=== PATIENT | female | born 1940 | race Caucasian/White ===

== ENCOUNTER 2017-03-26 00:33 | Emergency (ER) | payer MEDICARE ==
[2017-03-26] MEDS ORDERED: TRAMADOL HCL 50 MG TABLET ONE (01:49)
[2017-03-26 01:57] LABS: APPEARANCE,URINE Clear (CLEAR); BILIRUBIN,URINE Negative (NEGATIVE); COLOR,URINE Yellow (YELLOW); GLUCOSE, URINE (UA) Negative (NEGATIVE); KETONES,URINE Trace mg/dL (NEGATIVE); LEUKOCYTE ESTERASE ,URINE Negative (NEGATIVE); NITRATE,URINE Negative (NEGATIVE); OCCULT BLOOD,URINE Negative (NEGATIVE); PROTEIN,URINE POS 1+ (NEGATIVE)
[2017-03-26 02:09] LABS: BACTERIA,URINE Few /HPF (None Seen); MUCUS,URINE Many LPF (None Seen); RBC,URINE 0-1 /HPF (0-1); SQUAMOUS EPITHELIAL CELL,UR Moderate /LPF (0-2); WBC,URINE 0-1 /HPF (0-1)
[2017-03-26] MEDS ORDERED: LIDOCAINE 5% TOPICAL PATCH TP ONE ×2 (02:41→02:45)
[2017-03-26] MEDS ORDERED: MAGNESIUM CITRATE 296 ML SOLUTION ONE (04:27)
[2017-03-26] MEDS ORDERED: KETOROLAC TROMETHAMINE 30MG/ML ONE (04:27)
== END 2017-03-26 04:46 | disposition home or self-care (01) ==
LOC: EDH 00:33
DX: M54.5 Low back pain (principal); K59.00 Constipation, unspecified; M54.6 Pain in thoracic spine; E11.9 Type 2 diabetes mellitus without complications; I48.91 Unspecified atrial fibrillation; K50.90 Crohn's disease, unspecified, without complications; Z88.0 Allergy status to penicillin; Z88.8 Allergy status to other drugs, medicaments and biological substances; Z90.49 Acquired absence of other specified parts of digestive tract
CPT/HCPCS: 74176; 81001; 96372; 99285; J1885

== ENCOUNTER → 2018-05-09 | Outpatient (CLI) | payer MEDICARE | END | disposition home or self-care (01) | LOC: SHCH 16:23 | PROVIDERS: ATTEND Internal Medicine Cardiovascular Disease | DX: I11.9 Hypertensive heart disease without heart failure (principal); I31.3 Pericardial effusion (noninflammatory) | CPT/HCPCS: 93306 ==

== ENCOUNTER → 2018-05-20 | Outpatient (CLI) | payer MEDICARE ==
[~2018-05-20] VITALS: Ht 160 cm; Wt 72.6 kg
[~2018-05-20] MED LIST: ASPI-1026 PO; CRAN250T2 PO; DILT180C88 PO; DILT180T12 PO; EZET1TAB17 PO; MESA800T9 PO; OMEP20CA10 PO; PARO30TA60 PO; REGADENOSON 0.4 MG/5 ML PF SYG IVP SCH; SIMV20TA6 PO; SITA1TAB2 PO; SITA1TBM4 PO
== END | disposition home or self-care (01) ==
LOC: SHCH 08:26
PROVIDERS: ATTEND Internal Medicine Cardiovascular Disease
DX: R00.2 Palpitations (principal); R10.9 Unspecified abdominal pain; I10 Essential (primary) hypertension; I48.91 Unspecified atrial fibrillation
CPT/HCPCS: 78452; 93017; 96374; A9500 ×2; J2785

== ENCOUNTER 2018-06-06 17:08 | Emergency (ER) | payer MEDICARE ==
[~2018-06-06 17:08] MED LIST changes: -DILT180T12 PO; -REGADENOSON 0.4 MG/5 ML PF SYG IVP SCH; -SITA1TAB2 PO
[2018-06-06 17:46] LABS: APPEARANCE,URINE CLEAR (CLEAR); BILIRUBIN,URINE NEGATIVE (NEGATIVE); COLOR,URINE Orange (YELLOW); GLUCOSE, URINE (UA) 100 mg/dL (NEGATIVE); KETONES,URINE 15 mg/dL (NEGATIVE); LEUKOCYTE ESTERASE ,URINE TRACE (NEGATIVE); NITRATE,URINE POSITIVE (NEGATIVE); OCCULT BLOOD,URINE NEGATIVE (NEGATIVE); PROTEIN,URINE 100 mg/dL (NEGATIVE)
[2018-06-06 17:48] LABS: RBC,URINE None Seen /HPF (0-1)
[2018-06-06 17:49] LABS: BACTERIA,URINE Few /HPF (None Seen); CALCIUM OXALATE CRYSTALS,UR Many /LPF (None Seen)
[2018-06-06 17:50] LABS: SQUAMOUS EPITHELIAL CELL,UR 0-2 /HPF (0-2)
[2018-06-06] MEDS ORDERED: LEVOFLOXACIN 500 MG TABLET ONE (18:09)
== END 2018-06-06 18:17 | disposition home or self-care (01) ==
LOC: EDH 17:08
DX: N39.0 Urinary tract infection, site not specified (principal); E11.9 Type 2 diabetes mellitus without complications; I48.91 Unspecified atrial fibrillation; Z88.0 Allergy status to penicillin; Z88.1 Allergy status to other antibiotic agents; Z88.2 Allergy status to sulfonamides; Z88.8 Allergy status to other drugs, medicaments and biological substances; Z90.49 Acquired absence of other specified parts of digestive tract; Z90.89 Acquired absence of other organs; Z90.710 Acquired absence of both cervix and uterus; Z98.890 Other specified postprocedural states
CPT/HCPCS: 81001

== ENCOUNTER 2020-04-08 23:23 | Inpatient (IN) | payer MEDICARE ==
[~2020-04-08] VITALS: Ht 160 cm; Wt 72.5 kg
[~2020-04-08 23:23] MED LIST changes: -OMEP20CA10 PO; +OMEP20CA12 PO; +SIMV-43 PO; -SIMV20TA6 PO
[2020-04-08 23:49] LABS: APPEARANCE,URINE Clear (CLEAR); BILIRUBIN,URINE Negative (NEGATIVE); COLOR,URINE Yellow (YELLOW); GLUCOSE, URINE (UA) Negative (NEGATIVE); KETONES,URINE Trace mg/dL (NEGATIVE); LEUKOCYTE ESTERASE ,URINE Moderate (NEGATIVE); NITRATE,URINE Negative (NEGATIVE); OCCULT BLOOD,URINE Negative (NEGATIVE); PH,URINE 5.5 (5.0-8.0); PROTEIN,URINE POS 1+ mg/dL (NEGATIVE)
[2020-04-09] MEDS ORDERED: LEVOFLOXACIN 500 MG/D5W 100 ML 100 ML ONE
[2020-04-09] MEDS ORDERED: 0.9%NACL 1000ML 1,000 ML IV ONE (00:01)
[2020-04-09] MEDS ORDERED: METRONIDAZOLE 500MG/100ML BAG 100 ML ONE (00:01)
[2020-04-09 00:25] LABS: POTASSIUM 4.4 mmol/L (3.5-5.1)
[2020-04-09 00:30] LABS: ALBUMIN 4.2 g/dL (3.5-5.0); BASOPHILS % (AUTO) 0.6 % (0.0-5.0); BILIRUBIN,TOTAL 0.1 mg/dL (0.2-1.0); EOSINOPHILS % (AUTO) 1.3 % (0.0-8.0); HEMATOCRIT 39.6 % (36-48); LYMPHOCYTES % (AUTO) 18.5 % (21.0-51.0); MEAN CORPUSCULAR HEMOGLOBIN 28.7 pg (27.0-33.0); MEAN CORPUSCULAR HGB CONC 33.1 g/dL (32.0-36.0); MEAN CORPUSCULAR VOLUME 86.7 fL (79-99); MONOCYTES % (AUTO) 5.9 % (3.0-13.0); NEUTROPHILS % (AUTO) 73.4 % (40.0-77.0); PLATELET COUNT (AUTO) 432 K/uL (130-400); RED BLOOD CELL COUNT(AUTO) 4.57 MIL/uL (4.00-5.50); RED CELL DISTRIBUTION WIDTH 13.6 % (11.0-15.5); TOTAL PROTEIN, SERUM 7.7 g/dL (6.0-8.3)
[2020-04-09 00:31] LABS: BACTERIA,URINE Few /HPF (None Seen); RBC,URINE 0-1 /HPF (0-1); SQUAMOUS EPITHELIAL CELL,UR 0-2 /HPF (0-2)
[2020-04-09] MEDS ORDERED: FENTANYL CITRATE PF 50 MCG/1 ML 2ML VIAL ONE ×2 (00:40→03:21)
[2020-04-09] MEDS ORDERED: MORPHINE 2 MG SYG IVP PRN (02:15)
[2020-04-09] MEDS ORDERED: ACETAMINOPHEN 325 MG TAB PO PRN (02:15)
[2020-04-09] MEDS ORDERED: MAG/ALUM/SIMETH 30 ML UDCUP PO PRN (02:15)
[2020-04-09] MEDS ORDERED: DIPHENHYDRAMINE HCL 25 MG CAPSULE PO PRN (02:15)
[2020-04-09] MEDS ORDERED: POTASSIUM CHLORIDE 20MEQ/100ML 100 ML IV PRN ×2 (02:15)
[2020-04-09] MEDS ORDERED: POTASSIUM CHLORIDE 10% ELIXIR 20 MEQ/15 ML UDCUP PO PRN (02:15)
[2020-04-09] MEDS ORDERED: GUAIFENESIN-DM 200/20 MG 10 ML PO PRN (02:15)
[2020-04-09] MEDS ORDERED: LACTULOSE 20 GM/30 ML UDCUP PO PRN (02:15)
[2020-04-09] MEDS ORDERED: DiphenhydrAMINE HCL 50 MG/ML VIAL IV PRN (02:15)
[2020-04-09] MEDS ORDERED: ONDANSETRON 4MG INJ IV PRN (02:15)
[2020-04-09] MEDS ORDERED: LABETALOL 20MG SYG IV PRN (02:15)
[2020-04-09] MEDS ORDERED: KCL 20 MEQ ERTAB PO PRN (02:15)
[2020-04-09] MEDS ORDERED: NITROGLYCERIN 0.4 MG SL TAB SL PRN (02:15)
[2020-04-09] MEDS ORDERED: MORPHINE 2 MG SYG ONE ×3 (02:20→07:55)
[2020-04-09] MEDS ORDERED: ONDANSETRON 4MG INJ ONE ×2 (02:20→04:51)
[2020-04-09] MEDS ORDERED: PHARMACY COMMUNICATION MISC SCH (04:15)
[2020-04-09] MEDS ORDERED: LACTATED RINGERS 1000ML 1,000 ML IV ONE (04:38)
[2020-04-09] MEDS: METRONIDAZOLE 500MG/100ML BAG 100 ML IVPB SCH ×3 (06:00→22:16)
[2020-04-09] MEDS: INSULIN HUMULIN R 100 UNIT/ML 3ML SQ SCH ×3 (07:30→16:30)
[2020-04-09] MEDS: LEVOFLOXACIN 750 MG/D5W 150 ML 150 ML IV SCH (09:00)
[2020-04-09 09:15] VITALS: BP 162/94
[2020-04-09] MEDS: LACTATED RINGERS 1000ML 1,000 ML IV SCH ×2 (10:17→22:15)
[2020-04-09] MEDS: ACETAMINOPHEN 325 MG TAB PO PRN ×2 (11:34→18:14)
[2020-04-09] MEDS: APIXABAN 5 MG TABLET PO SCH ×2 (11:35→20:02)
[2020-04-09 16:00] VITALS: BP 147/84
[2020-04-09 19:44] VITALS: BP 128/74
[2020-04-09 23:46] VITALS: BP 145/84
[2020-04-10 04:07] VITALS: BP 169/93
[2020-04-10] MEDS: INSULIN HUMULIN R 100 UNIT/ML 3ML SQ SCH ×4 (06:00→18:00)
[2020-04-10 06:26] LABS: BASOPHILS % (AUTO) 0.4 % (0.0-5.0); HEMATOCRIT 34.9 % (36-48); MEAN CORPUSCULAR HEMOGLOBIN 28.8 pg (27.0-33.0); MEAN CORPUSCULAR HGB CONC 32.7 g/dL (32.0-36.0); MEAN CORPUSCULAR VOLUME 88.1 fL (79-99); NEUTROPHILS % (AUTO) 76.4 % (40.0-77.0); PLATELET COUNT (AUTO) 383 K/uL (130-400); RED BLOOD CELL COUNT(AUTO) 3.96 MIL/uL (4.00-5.50); RED CELL DISTRIBUTION WIDTH 13.4 % (11.0-15.5); WHITE BLOOD COUNT (AUTO) 8.1 K/uL (4.8-10.8)
[2020-04-10 07:00] VITALS: BP 157/90
[2020-04-10 07:00] LABS: ALBUMIN 3.2 g/dL (3.5-5.0); BILIRUBIN,TOTAL 0.3 mg/dL (0.2-1.0); CREATININE 0.9 mg/dL (0.5-1.5); MAGNESIUM 1.4 mg/dL (1.80-2.40); POTASSIUM 5.1 mmol/L (3.5-5.1); TOTAL PROTEIN, SERUM 6.5 g/dL (6.0-8.3)
[2020-04-10] MEDS: METRONIDAZOLE 500MG/100ML BAG 100 ML IVPB SCH ×3 (07:30→20:47)
[2020-04-10] MEDS: LEVOFLOXACIN 750 MG/D5W 150 ML 150 ML IV SCH (10:22)
[2020-04-10] MEDS: APIXABAN 5 MG TABLET PO SCH ×2 (10:22→20:47)
[2020-04-10 11:00] VITALS: BP 150/90
[2020-04-10] MEDS ORDERED: LACTATED RINGERS 1000ML 1,000 ML IV ONE (14:58)
[2020-04-10] MEDS: LACTATED RINGERS 1000ML 1,000 ML IV SCH (15:00)
[2020-04-10 16:00] VITALS: BP 163/100
[2020-04-10 19:34] VITALS: BP 156/87
[2020-04-10 23:53] VITALS: BP 146/88
[2020-04-11 04:48] VITALS: BP 158/95
[2020-04-11 05:42] LABS: BASOPHILS % (AUTO) 0.6 % (0.0-5.0); EOSINOPHILS % (AUTO) 1.9 % (0.0-8.0); HEMATOCRIT 33.7 % (36-48); LYMPHOCYTES % (AUTO) 19.4 % (21.0-51.0); MEAN CORPUSCULAR HEMOGLOBIN 28.8 pg (27.0-33.0); MEAN CORPUSCULAR HGB CONC 32.6 g/dL (32.0-36.0); MEAN CORPUSCULAR VOLUME 88.2 fL (79-99); MONOCYTES % (AUTO) 8.9 % (3.0-13.0); NEUTROPHILS % (AUTO) 68.9 % (40.0-77.0); PLATELET COUNT (AUTO) 362 K/uL (130-400); RED BLOOD CELL COUNT(AUTO) 3.82 MIL/uL (4.00-5.50); RED CELL DISTRIBUTION WIDTH 13.5 % (11.0-15.5); WHITE BLOOD COUNT (AUTO) 6.3 K/uL (4.8-10.8)
[2020-04-11] MEDS: INSULIN HUMULIN R 100 UNIT/ML 3ML SQ SCH ×4 (06:00→18:00)
[2020-04-11 06:12] LABS: ALBUMIN 3.2 g/dL (3.5-5.0); BILIRUBIN,TOTAL 0.3 mg/dL (0.2-1.0); CREATININE 0.9 mg/dL (0.5-1.5); POTASSIUM 4.4 mmol/L (3.5-5.1); TOTAL PROTEIN, SERUM 6.6 g/dL (6.0-8.3)
[2020-04-11] MEDS: METRONIDAZOLE 500MG/100ML BAG 100 ML IVPB SCH ×3 (06:14→21:16)
[2020-04-11 07:00] VITALS: BP 158/91
[2020-04-11] MEDS: LACTATED RINGERS 1000ML 1,000 ML IV SCH ×4 (08:12→21:17)
[2020-04-11] MEDS: LEVOFLOXACIN 750 MG/D5W 150 ML 150 ML IV SCH (09:24)
[2020-04-11] MEDS: APIXABAN 5 MG TABLET PO SCH ×2 (09:24→18:10)
[2020-04-11] MEDS: MAGNESIUM 2GM PREMIX 50ML 50 ML IV PRN (10:55)
[2020-04-11 11:00] VITALS: BP 151/87
[2020-04-11 16:00] VITALS: BP 153/90
[2020-04-11] MEDS ORDERED: PROP225T3 PO (19:32)
[2020-04-11 20:00] VITALS: BP 177/93
[2020-04-11] MEDS: NITROFURANTOIN MONOHYD/M-CRYST 100 MG CAPSULE PO SCH (20:05)
[2020-04-11 23:47] VITALS: BP 153/87
[2020-04-12 03:30] VITALS: BP 161/86
[2020-04-12 05:37] LABS: BASOPHILS % (AUTO) 0.9 % (0.0-5.0); EOSINOPHILS % (AUTO) 1.5 % (0.0-8.0); HEMATOCRIT 34.6 % (36-48); LYMPHOCYTES % (AUTO) 20.2 % (21.0-51.0); MEAN CORPUSCULAR HEMOGLOBIN 27.9 pg (27.0-33.0); MEAN CORPUSCULAR HGB CONC 32.1 g/dL (32.0-36.0); MEAN CORPUSCULAR VOLUME 86.9 fL (79-99); MONOCYTES % (AUTO) 11.6 % (3.0-13.0); NEUTROPHILS % (AUTO) 65.5 % (40.0-77.0); PLATELET COUNT (AUTO) 373 K/uL (130-400); RED BLOOD CELL COUNT(AUTO) 3.98 MIL/uL (4.00-5.50); RED CELL DISTRIBUTION WIDTH 13.2 % (11.0-15.5); WHITE BLOOD COUNT (AUTO) 6.5 K/uL (4.8-10.8)
[2020-04-12] MEDS: INSULIN HUMULIN R 100 UNIT/ML 3ML SQ SCH ×4 (06:00→18:00)
[2020-04-12 06:04] LABS: ALBUMIN 3.3 g/dL (3.5-5.0); BILIRUBIN,TOTAL 0.4 mg/dL (0.2-1.0); CREATININE 0.9 mg/dL (0.5-1.5); POTASSIUM 3.7 mmol/L (3.5-5.1); TOTAL PROTEIN, SERUM 6.5 g/dL (6.0-8.3)
[2020-04-12] MEDS: METRONIDAZOLE 500MG/100ML BAG 100 ML IVPB SCH ×3 (06:34→21:36)
[2020-04-12] MEDS ORDERED: ASCO500T92 PO (07:46)
[2020-04-12] MEDS ORDERED: L.AC1CAP6 PO (07:46)
[2020-04-12 07:55] VITALS: BP 151/92
[2020-04-12] MEDS: APIXABAN 5 MG TABLET PO SCH ×2 (10:17→21:37)
[2020-04-12] MEDS: LEVOFLOXACIN 750 MG/D5W 150 ML 150 ML IV SCH (10:17)
[2020-04-12] MEDS: NITROFURANTOIN MONOHYD/M-CRYST 100 MG CAPSULE PO SCH ×2 (10:17→21:36)
[2020-04-12 12:15] VITALS: BP 162/88
[2020-04-12] MEDS ORDERED: DIPHENHYDRAMINE 2% CREAM 30 GM TP PRN (15:15)
[2020-04-12] MEDS ORDERED: BISACODYL 10 MG SUPP.RECT RC PRN (15:15)
[2020-04-12 16:49] VITALS: BP 150/95
[2020-04-12] MEDS: MAGNESIUM 2GM PREMIX 50ML 50 ML IV PRN (16:54)
[2020-04-12] MEDS: LACTATED RINGERS 1000ML 1,000 ML IV SCH (17:02)
[2020-04-12 19:00] VITALS: BP 133/79
[2020-04-12] MEDS: PROPAFENONE HCL 150 MG TABLET PO SCH (22:45)
[2020-04-12 23:46] VITALS: BP 151/83
[2020-04-13] MEDS: LACTATED RINGERS 1000ML 1,000 ML IV SCH ×2 (02:15→13:00)
[2020-04-13 03:00] VITALS: BP 160/83
[2020-04-13] MEDS: METRONIDAZOLE 500MG/100ML BAG 100 ML IVPB SCH ×2 (05:59→15:24)
[2020-04-13] MEDS: INSULIN HUMULIN R 100 UNIT/ML 3ML SQ SCH ×4 (06:00→18:00)
[2020-04-13] MEDS: PROPAFENONE HCL 150 MG TABLET PO SCH ×2 (06:45→15:26)
[2020-04-13 07:30] VITALS: BP 160/83
[2020-04-13] MEDS: JANUMET PO SCH ×2 (09:00→20:21)
[2020-04-13] MEDS: MESALAMINE PO SCH ×2 (09:00→20:21)
[2020-04-13] MEDS: LEVOFLOXACIN 750 MG/D5W 150 ML 150 ML IV SCH (10:58)
[2020-04-13] MEDS: APIXABAN 5 MG TABLET PO SCH ×2 (10:59→20:16)
[2020-04-13] MEDS: LACTOBACILLUS RHAMNOSUS GG 1 EACH CAP.SPRINK PO SCH ×2 (10:59→20:17)
[2020-04-13] MEDS: PAROXETINE HCL 20 MG TABLET PO SCH (10:59)
[2020-04-13] MEDS: ASCORBIC ACID 500 MG TAB PO SCH ×2 (10:59→20:16)
[2020-04-13] MEDS: NITROFURANTOIN MONOHYD/M-CRYST 100 MG CAPSULE PO SCH ×2 (10:59→20:16)
[2020-04-13] MEDS: DILTIAZEM 180MG SR CAP PO SCH ×2 (10:59→20:16)
[2020-04-13 11:00] VITALS: BP 120/81
[2020-04-13] MEDS: PANTOPRAZOLE 40 MG TAB DR PO SCH (11:00)
[2020-04-13 16:00] VITALS: BP 138/73
[2020-04-13 20:26] VITALS: BP 149/70
[2020-04-13 23:54] VITALS: BP 131/64
[2020-04-14] MEDS: METRONIDAZOLE 500MG/100ML BAG 100 ML IVPB SCH ×4 (00:01→20:09)
[2020-04-14] MEDS: PROPAFENONE HCL 150 MG TABLET PO SCH ×4 (00:02→22:46)
[2020-04-14] MEDS: LACTATED RINGERS 1000ML 1,000 ML IV SCH ×3 (00:03→20:09)
[2020-04-14 03:54] VITALS: BP 124/58
[2020-04-14] MEDS: INSULIN HUMULIN R 100 UNIT/ML 3ML SQ SCH ×4 (06:00→20:15)
[2020-04-14 08:06] VITALS: BP 125/63
[2020-04-14] MEDS: JANUMET PO SCH ×2 (09:00→20:10)
[2020-04-14] MEDS ORDERED: VYTORIN PO SCH (09:00)
[2020-04-14] MEDS ORDERED: SIMVASTATIN 20 MG TABLET PO SCH (09:00)
[2020-04-14] MEDS: MESALAMINE PO SCH ×2 (09:00→20:11)
[2020-04-14] MEDS: LEVOFLOXACIN 750 MG/D5W 150 ML 150 ML IV SCH (09:50)
[2020-04-14] MEDS: APIXABAN 5 MG TABLET PO SCH ×2 (09:51→20:10)
[2020-04-14] MEDS: PAROXETINE HCL 20 MG TABLET PO SCH (09:52)
[2020-04-14] MEDS: PANTOPRAZOLE 40 MG TAB DR PO SCH (09:52)
[2020-04-14] MEDS: NITROFURANTOIN MONOHYD/M-CRYST 100 MG CAPSULE PO SCH ×2 (09:52→20:10)
[2020-04-14] MEDS: ASCORBIC ACID 500 MG TAB PO SCH ×2 (09:52→20:10)
[2020-04-14] MEDS: LACTOBACILLUS RHAMNOSUS GG 1 EACH CAP.SPRINK PO SCH ×2 (09:52→20:09)
[2020-04-14] MEDS: DILTIAZEM 180MG SR CAP PO SCH ×2 (09:53→20:10)
[2020-04-14 11:00] VITALS: BP 137/65
[2020-04-14 16:02] VITALS: BP 104/68
[2020-04-14 20:04] VITALS: BP 127/67
[2020-04-14 23:23] VITALS: BP 155/79
[2020-04-15 03:39] VITALS: BP 108/52
[2020-04-15] MEDS: LACTATED RINGERS 1000ML 1,000 ML IV SCH (04:26)
[2020-04-15] MEDS: INSULIN HUMULIN R 100 UNIT/ML 3ML SQ SCH ×2 (05:38→11:43)
[2020-04-15] MEDS: METRONIDAZOLE 500MG/100ML BAG 100 ML IVPB SCH (06:05)
[2020-04-15] MEDS: PROPAFENONE HCL 150 MG TABLET PO SCH (06:05)
[2020-04-15 08:03] VITALS: BP 113/50
[2020-04-15] MEDS: JANUMET PO SCH (09:00)
[2020-04-15] MEDS: MESALAMINE PO SCH (09:00)
[2020-04-15] MEDS: LEVOFLOXACIN 750 MG/D5W 150 ML 150 ML IV SCH (09:19)
[2020-04-15] MEDS: PANTOPRAZOLE 40 MG TAB DR PO SCH (09:19)
[2020-04-15] MEDS: DILTIAZEM 180MG SR CAP PO SCH (09:19)
[2020-04-15] MEDS: LACTOBACILLUS RHAMNOSUS GG 1 EACH CAP.SPRINK PO SCH (09:19)
[2020-04-15] MEDS: APIXABAN 5 MG TABLET PO SCH (09:19)
[2020-04-15] MEDS: PAROXETINE HCL 20 MG TABLET PO SCH (09:19)
[2020-04-15] MEDS: ASCORBIC ACID 500 MG TAB PO SCH (09:20)
[2020-04-15] MEDS: NITROFURANTOIN MONOHYD/M-CRYST 100 MG CAPSULE PO SCH (09:20)
[2020-04-15 11:48] VITALS: BP 125/63
[2020-04-15] MEDS ORDERED: APIX5TAB PO (13:06)
[2020-05-20] MEDS ORDERED: PROP225T3 PO (12:30)
[2020-05-20] MEDS ORDERED: FERR-82 PO (12:36)
== END 2020-04-15 17:35 | disposition home or self-care (01) | DRG 389 ==
LOC: EDH 23:23 → EDHIP 04-09 02:15 → 3AH 04-09 08:57
PROVIDERS: ADMIT Family Medicine; ATTEND Family Medicine
PROC: 0D9670Z Drainage of Stomach with Drainage Device, Via Natural or Artificial Opening (ICD-10-PCS; principal; 2020-04-09)
DX: K56.609 Unspecified intestinal obstruction, unspecified as to partial versus complete obstruction (principal); N39.0 Urinary tract infection, site not specified; D68.69 Other thrombophilia; K80.20 Calculus of gallbladder without cholecystitis without obstruction; K57.90 Diverticulosis of intestine, part unspecified, without perforation or abscess without bleeding; E83.52 Hypercalcemia; I48.91 Unspecified atrial fibrillation; I10 Essential (primary) hypertension; E11.9 Type 2 diabetes mellitus without complications; Z79.01 Long term (current) use of anticoagulants; Z88.1 Allergy status to other antibiotic agents; Z88.0 Allergy status to penicillin
CPT/HCPCS: 36415; 74018; 74176; 76705; 80053; 81001; 82948; 83036; 83735; 85025; 87077; 87186; 93005; G0378; J1200; J1956; J2405; J3010; J3475; J3490; J7030; J7120

== ENCOUNTER 2020-05-24 06:49 | Inpatient (IN) | payer MEDICARE ==
[2020-05-17 11:08] LABS: POTASSIUM 4.1 mmol/L (3.5-5.1)
[2020-05-17 11:10] LABS: BASOPHILS % (AUTO) 1.3 % (0.0-5.0); EOSINOPHILS % (AUTO) 2.2 % (0.0-8.0); HEMATOCRIT 37.3 % (36-48); LYMPHOCYTES % (AUTO) 18.8 % (21.0-51.0); MEAN CORPUSCULAR HEMOGLOBIN 29.2 pg (27.0-33.0); MEAN CORPUSCULAR HGB CONC 32.4 g/dL (32.0-36.0); MEAN CORPUSCULAR VOLUME 90.1 fL (79-99); MONOCYTES % (AUTO) 4.6 % (3.0-13.0); NEUTROPHILS % (AUTO) 72.9 % (40.0-77.0); PLATELET COUNT (AUTO) 437 K/uL (130-400); RED BLOOD CELL COUNT(AUTO) 4.14 MIL/uL (4.00-5.50); RED CELL DISTRIBUTION WIDTH 13.8 % (11.0-15.5); WHITE BLOOD COUNT (AUTO) 6.3 K/uL (4.8-10.8)
[2020-05-17 11:39] LABS: INR 1.1 (0.85-1.15); PROTHROMBIN TIME 11.9 SEC (9.6-11.6)
[2020-05-17 11:40] LABS: PARTIAL THROMBOPLASTIN TIME 29.5 SEC (26.3-35.5)
[~2020-05-24] VITALS: Ht 160 cm; Wt 70.8 kg
[2020-05-24] VITALS (25 sets, daily range): BP systolic 91–150; BP diastolic 36–85
[~2020-05-24 06:49] MED LIST changes: +APIX5TAB PO; +ASCO500T92 PO; -ASPI-1026 PO; +CLINDAMYCIN IVPB 900MG/50ML 50 ML IV SCH; +FERR-82 PO; +L.AC1CAP6 PO; +PROP225T3 PO; -SIMV-43 PO
[2020-05-24] MEDS ORDERED: CLINDAMYCIN IVPB 900MG/50ML 50 ML IV ONE (07:38)
[2020-05-24] MEDS ORDERED: DEXAMETHASONE SOD PHOSPHATE 10MG/ML 1ML VIAL ONE (07:46)
[2020-05-24] MEDS ORDERED: LIDOCAINE PF 100MG/5ML (2%) SYRINGE 5ML ONE (07:46)
[2020-05-24] MEDS ORDERED: SUCCINYLCHOLINE 200MG/10ML SYR ONE ×2 (07:46→08:05)
[2020-05-24] MEDS ORDERED: ONDANSETRON 4MG INJ ONE (07:47)
[2020-05-24] MEDS ORDERED: MIDAZOLAM HCL 1 MG/ML 2ML VIAL ONE (07:47)
[2020-05-24] MEDS ORDERED: GLYCOPYRROLATE 1 MG/5 ML SYRINGE ONE (07:47)
[2020-05-24] MEDS ORDERED: PROPOFOL 10 MG/ML 20ML VIAL IV ONE (07:47)
[2020-05-24] MEDS ORDERED: NEOSTIGMINE 5MG/5ML SYR IV ONE (07:47)
[2020-05-24] MEDS ORDERED: ROCURONIUM 10MG/1ML SYR 10 MG/ML ML ONE (07:48)
[2020-05-24] MEDS ORDERED: FENTANYL CITRATE PF 50 MCG/1 ML 2ML VIAL ONE ×3 (07:48→11:49)
[2020-05-24] MEDS ORDERED: BUPIVACAINE/PF 0.5% 30ML VIAL ONE (07:49)
[2020-05-24] MEDS: 0.9%NACL 1000ML 1,000 ML IV SCH ×6 (07:55→20:25)
[2020-05-24] MEDS ORDERED: MEPERIDINE-PF 25 MG/ML SYG ONE (08:12)
[2020-05-24] MEDS ORDERED: PHENYLEPHRINE HCL 10 MG/ML 1ML VIAL IV ONE (08:25)
[2020-05-24] MEDS ORDERED: EPHEDRINE SULFATE 50 MG/ML AMPULE ONE (08:26)
[2020-05-24] MEDS ORDERED: DEXTROSE 50%-WATER 50 ML DISP.SYRIN IV PRN (12:30)
[2020-05-24] MEDS ORDERED: ONDANSETRON 4MG INJ IVP PRN (12:30)
[2020-05-24] MEDS ORDERED: GLUCAGON 1MG KIT 1 MG ML IM PRN (12:30)
[2020-05-24] MEDS ORDERED: INSULIN HUMULIN R 100 UNIT/ML 3ML SQ PRN (12:30)
[2020-05-24] MEDS: MEPERIDINE-PF 25 MG/ML SYG IV PRN ×4 (13:08→23:25)
[2020-05-24] MEDS: CLINDAMYCIN IVPB 900MG/50ML 50 ML IV SCH ×2 (14:09→19:06)
[2020-05-24] MEDS: LACTATED RINGERS 1000ML 1,000 ML IV SCH ×2 (14:09→20:08)
[2020-05-24] MEDS: INSULIN HUMULIN R 100 UNIT/ML 3ML SQ SCH ×2 (16:30→20:24)
[2020-05-24] MEDS: SITAGLIPTIN PHOS PO SCH (16:39)
[2020-05-24] MEDS: METFORMIN HCL PO SCH (16:39)
[2020-05-24] MEDS: SIMVASTATIN 20 MG TABLET PO SCH (20:07)
[2020-05-24] MEDS: EZETIMIBE 10 MG TAB PO SCH (20:07)
[2020-05-24] MEDS: ASCORBIC ACID 500 MG TAB PO SCH (20:08)
[2020-05-24] MEDS: DILTIAZEM 180MG SR CAP PO SCH (20:08)
[2020-05-24] MEDS: ACIDOPH PO SCH (20:24)
[2020-05-24] MEDS: MESALAMINE 800 MG PO SCH (20:24)
[2020-05-24] MEDS: CRANBERRY FRUIT 250 MG PO SCH (20:24)
[2020-05-24] MEDS: PARACASEI B LACTIS PO SCH (20:24)
[2020-05-24] MEDS: PROPAFENONE HCL 150 MG TABLET PO SCH (20:24)
[2020-05-25] VITALS: BP 142/72
[2020-05-25] MEDS: MEPERIDINE-PF 25 MG/ML SYG IV PRN ×4 (02:09→12:51)
[2020-05-25] MEDS: LACTATED RINGERS 1000ML 1,000 ML IV SCH ×3 (03:58→20:33)
[2020-05-25 04:00] VITALS: BP 116/58
[2020-05-25 05:25] LABS: BASOPHILS % (AUTO) 0.1 % (0.0-5.0); EOSINOPHILS % (AUTO) 2.1 % (0.0-8.0); HEMATOCRIT 28.6 % (36-48); LYMPHOCYTES % (AUTO) 5.2 % (21.0-51.0); MEAN CORPUSCULAR HEMOGLOBIN 29.4 pg (27.0-33.0); MEAN CORPUSCULAR HGB CONC 32.9 g/dL (32.0-36.0); MEAN CORPUSCULAR VOLUME 89.4 fL (79-99); MONOCYTES % (AUTO) 6.4 % (3.0-13.0); NEUTROPHILS % (AUTO) 85.9 % (40.0-77.0); PLATELET COUNT (AUTO) 329 K/uL (130-400); WHITE BLOOD COUNT (AUTO) 10.9 K/uL (4.8-10.8)
[2020-05-25] MEDS: INSULIN HUMULIN R 100 UNIT/ML 3ML SQ SCH ×4 (06:41→20:30)
[2020-05-25 08:00] VITALS: BP 137/68
[2020-05-25] MEDS: SITAGLIPTIN PHOS PO SCH ×2 (08:00→17:00)
[2020-05-25] MEDS: METFORMIN HCL PO SCH ×2 (08:00→17:00)
[2020-05-25] MEDS: MESALAMINE 800 MG PO SCH ×2 (09:00→20:41)
[2020-05-25] MEDS: PARACASEI B LACTIS PO SCH ×2 (09:00→20:41)
[2020-05-25] MEDS: ACIDOPH PO SCH ×2 (09:00→20:41)
[2020-05-25] MEDS: FERROUS SULFATE 325 MG TABLET.DR PO SCH (09:32)
[2020-05-25] MEDS: PROPAFENONE HCL 150 MG TABLET PO SCH ×2 (09:32→20:30)
[2020-05-25] MEDS: PANTOPRAZOLE 40 MG TAB DR PO SCH (09:32)
[2020-05-25] MEDS: ASCORBIC ACID 500 MG TAB PO SCH ×2 (09:32→20:35)
[2020-05-25] MEDS: DILTIAZEM 180MG SR CAP PO SCH ×2 (09:32→20:30)
[2020-05-25 11:49] VITALS: BP 128/65
[2020-05-25 15:36] VITALS: BP 131/64
[2020-05-25] MEDS: KETOROLAC 30MG VIAL (30MG/ML) IV SCH ×2 (16:20→22:44)
[2020-05-25] MEDS: APIXABAN 5 MG TABLET PO SCH (20:35)
[2020-05-25] MEDS: CRANBERRY FRUIT 250 MG PO SCH (20:41)
[2020-05-25 20:42] VITALS: BP 109/52
[2020-05-26] VITALS (7 sets, daily range): BP systolic 104–145; BP diastolic 42–80
[2020-05-26] MEDS: LACTATED RINGERS 1000ML 1,000 ML IV SCH ×3 (03:13→21:02)
[2020-05-26] MEDS: KETOROLAC 30MG VIAL (30MG/ML) IV SCH ×4 (04:09→22:00)
[2020-05-26] MEDS: INSULIN HUMULIN R 100 UNIT/ML 3ML SQ SCH ×4 (05:37→21:00)
[2020-05-26 05:46] LABS: BASOPHILS % (AUTO) 0.1 % (0.0-5.0); HEMATOCRIT 24.7 % (36-48); LYMPHOCYTES % (AUTO) 6.4 % (21.0-51.0); MEAN CORPUSCULAR HEMOGLOBIN 29.3 pg (27.0-33.0); MEAN CORPUSCULAR VOLUME 91.5 fL (79-99); MONOCYTES % (AUTO) 5.9 % (3.0-13.0); NEUTROPHILS % (AUTO) 86.9 % (40.0-77.0); PLATELET COUNT (AUTO) 292 K/uL (130-400); RED CELL DISTRIBUTION WIDTH 14.6 % (11.0-15.5); WHITE BLOOD COUNT (AUTO) 13.4 K/uL (4.8-10.8)
[2020-05-26 05:56] LABS: POTASSIUM 5.1 mmol/L (3.5-5.1)
[2020-05-26] MEDS: SITAGLIPTIN PHOS PO SCH ×2 (08:55→16:53)
[2020-05-26] MEDS: METFORMIN HCL PO SCH ×2 (08:55→16:53)
[2020-05-26] MEDS: PROPAFENONE HCL 150 MG TABLET PO SCH ×3 (09:00→20:56)
[2020-05-26] MEDS: DILTIAZEM 180MG SR CAP PO SCH ×3 (09:00→20:58)
[2020-05-26] MEDS: FERROUS SULFATE 325 MG TABLET.DR PO SCH (10:50)
[2020-05-26] MEDS: APIXABAN 5 MG TABLET PO SCH ×2 (10:50→20:58)
[2020-05-26] MEDS: PANTOPRAZOLE 40 MG TAB DR PO SCH (10:50)
[2020-05-26] MEDS: PARACASEI B LACTIS PO SCH ×2 (10:54→21:54)
[2020-05-26] MEDS: ASCORBIC ACID 500 MG TAB PO SCH ×2 (10:54→20:56)
[2020-05-26] MEDS: ACIDOPH PO SCH ×2 (10:54→21:54)
[2020-05-26] MEDS: MESALAMINE 800 MG PO SCH ×2 (11:08→21:54)
[2020-05-26] MEDS: MEPERIDINE-PF 25 MG/ML SYG IV PRN ×2 (13:17→21:20)
[2020-05-26 15:11] LABS: HEMATOCRIT 23.7 % (36-48)
[2020-05-26] MEDS: SIMVASTATIN 20 MG TABLET PO SCH (20:57)
[2020-05-26] MEDS: CRANBERRY FRUIT 250 MG PO SCH (21:00)
[2020-05-26] MEDS: EZETIMIBE 10 MG TAB PO SCH (21:02)
[2020-05-27] MEDS: KETOROLAC 30MG VIAL (30MG/ML) IV SCH ×4 (04:00→22:19)
[2020-05-27 04:08] VITALS: BP 152/80
[2020-05-27 05:37] LABS: BASOPHILS % (AUTO) 0.2 % (0.0-5.0); EOSINOPHILS % (AUTO) 0.3 % (0.0-8.0); HEMATOCRIT 24.4 % (36-48); LYMPHOCYTES % (AUTO) 8.4 % (21.0-51.0); MEAN CORPUSCULAR HEMOGLOBIN 29.1 pg (27.0-33.0); MONOCYTES % (AUTO) 5.5 % (3.0-13.0); PLATELET COUNT (AUTO) 308 K/uL (130-400); RED BLOOD CELL COUNT(AUTO) 2.68 MIL/uL (4.00-5.50); RED CELL DISTRIBUTION WIDTH 14.2 % (11.0-15.5); WHITE BLOOD COUNT (AUTO) 11.8 K/uL (4.8-10.8)
[2020-05-27] MEDS: LACTATED RINGERS 1000ML 1,000 ML IV SCH ×3 (05:53→19:52)
[2020-05-27] MEDS: INSULIN HUMULIN R 100 UNIT/ML 3ML SQ SCH ×4 (07:30→21:00)
[2020-05-27 07:47] VITALS: BP 135/81
[2020-05-27] MEDS: PROPAFENONE HCL 150 MG TABLET PO SCH ×2 (08:45→21:39)
[2020-05-27] MEDS: FERROUS SULFATE 325 MG TABLET.DR PO SCH (08:45)
[2020-05-27] MEDS: PANTOPRAZOLE 40 MG TAB DR PO SCH (08:45)
[2020-05-27] MEDS: ASCORBIC ACID 500 MG TAB PO SCH ×2 (08:45→21:39)
[2020-05-27] MEDS: APIXABAN 5 MG TABLET PO SCH ×2 (08:46→21:39)
[2020-05-27] MEDS: DILTIAZEM 180MG SR CAP PO SCH ×2 (08:46→21:39)
[2020-05-27] MEDS: METFORMIN HCL PO SCH ×2 (08:51→17:43)
[2020-05-27] MEDS: SITAGLIPTIN PHOS PO SCH ×2 (08:51→17:43)
[2020-05-27] MEDS: PARACASEI B LACTIS PO SCH ×2 (08:51→21:40)
[2020-05-27] MEDS: ACIDOPH PO SCH ×2 (08:51→21:40)
[2020-05-27] MEDS: MESALAMINE 800 MG PO SCH ×2 (08:52→21:40)
[2020-05-27 11:00] VITALS: BP 124/71
[2020-05-27 16:00] VITALS: BP 105/43
[2020-05-27 19:39] VITALS: BP 134/58
[2020-05-27] MEDS: CRANBERRY FRUIT 250 MG PO SCH (22:19)
[2020-05-27 23:32] VITALS: BP 143/65
[2020-05-28 03:31] VITALS: BP 122/63
[2020-05-28] MEDS: KETOROLAC 30MG VIAL (30MG/ML) IV SCH ×5 (04:00→23:56)
[2020-05-28] MEDS: LACTATED RINGERS 1000ML 1,000 ML IV SCH ×3 (05:25→20:30)
[2020-05-28] MEDS ORDERED: ACETAMINOPHEN 325 MG TAB ONE (05:29)
[2020-05-28] MEDS: INSULIN HUMULIN R 100 UNIT/ML 3ML SQ SCH ×4 (05:34→21:00)
[2020-05-28 05:57] LABS: HEMATOCRIT 22.3 % (36-48); MEAN CORPUSCULAR HEMOGLOBIN 29.2 pg (27.0-33.0); MEAN CORPUSCULAR HGB CONC 32.7 g/dL (32.0-36.0); MEAN CORPUSCULAR VOLUME 89.2 fL (79-99); RED BLOOD CELL COUNT(AUTO) 2.5 MIL/uL (4.00-5.50); RED CELL DISTRIBUTION WIDTH 13.9 % (11.0-15.5); WHITE BLOOD COUNT (AUTO) 9.7 K/uL (4.8-10.8)
[2020-05-28 06:11] LABS: CREATININE 0.7 mg/dL (0.5-1.5); POTASSIUM 3.9 mmol/L (3.5-5.1)
[2020-05-28 07:39] VITALS: BP 144/76
[2020-05-28] MEDS: METFORMIN HCL PO SCH ×2 (08:00→17:00)
[2020-05-28] MEDS: SITAGLIPTIN PHOS PO SCH ×2 (08:00→17:00)
[2020-05-28] MEDS: ACIDOPH PO SCH ×2 (09:00→21:00)
[2020-05-28] MEDS: MESALAMINE 800 MG PO SCH ×2 (09:00→21:00)
[2020-05-28] MEDS: PARACASEI B LACTIS PO SCH ×2 (09:00→21:00)
[2020-05-28] MEDS: PROPAFENONE HCL 150 MG TABLET PO SCH ×2 (10:30→20:46)
[2020-05-28] MEDS: PANTOPRAZOLE 40 MG TAB DR PO SCH (10:30)
[2020-05-28] MEDS: APIXABAN 5 MG TABLET PO SCH ×2 (10:30→21:00)
[2020-05-28] MEDS: ASCORBIC ACID 500 MG TAB PO SCH ×2 (10:30→20:45)
[2020-05-28] MEDS: FERROUS SULFATE 325 MG TABLET.DR PO SCH (10:30)
[2020-05-28] MEDS: DILTIAZEM 180MG SR CAP PO SCH ×2 (10:33→20:46)
[2020-05-28 11:35] VITALS: BP 148/90
[2020-05-28] MEDS ORDERED: 0.9% NACL 250ML 250 ML IV ONE (14:55)
[2020-05-28 16:00] VITALS: BP 143/72
[2020-05-28 19:59] VITALS: BP 148/92
[2020-05-28] MEDS: EZETIMIBE 10 MG TAB PO SCH (20:45)
[2020-05-28] MEDS: SIMVASTATIN 20 MG TABLET PO SCH (20:46)
[2020-05-28] MEDS: CRANBERRY FRUIT 250 MG PO SCH (21:00)
[2020-05-29 00:01] VITALS: BP 140/80
[2020-05-29] MEDS: LACTATED RINGERS 1000ML 1,000 ML IV SCH (03:40)
[2020-05-29 04:14] VITALS: BP 132/80
[2020-05-29 05:31] LABS: HEMATOCRIT 27.9 % (36-48); MEAN CORPUSCULAR HGB CONC 32.3 g/dL (32.0-36.0); RED BLOOD CELL COUNT(AUTO) 3.1 MIL/uL (4.00-5.50); RED CELL DISTRIBUTION WIDTH 14.2 % (11.0-15.5); WHITE BLOOD COUNT (AUTO) 6.8 K/uL (4.8-10.8)
[2020-05-29] MEDS: INSULIN HUMULIN R 100 UNIT/ML 3ML SQ SCH ×3 (06:32→16:30)
[2020-05-29 08:00] VITALS: BP 150/82
[2020-05-29] MEDS: METFORMIN HCL PO SCH ×2 (08:00→16:54)
[2020-05-29] MEDS: SITAGLIPTIN PHOS PO SCH ×2 (08:00→16:54)
[2020-05-29] MEDS: DILTIAZEM 180MG SR CAP PO SCH (08:12)
[2020-05-29] MEDS: APIXABAN 5 MG TABLET PO SCH (08:12)
[2020-05-29] MEDS: ACIDOPH PO SCH (08:12)
[2020-05-29] MEDS: PARACASEI B LACTIS PO SCH (08:12)
[2020-05-29] MEDS: MESALAMINE 800 MG PO SCH (08:12)
[2020-05-29] MEDS: ASCORBIC ACID 500 MG TAB PO SCH (08:13)
[2020-05-29] MEDS: PROPAFENONE HCL 150 MG TABLET PO SCH (08:13)
[2020-05-29] MEDS: FERROUS SULFATE 325 MG TABLET.DR PO SCH (08:13)
[2020-05-29] MEDS: PANTOPRAZOLE 40 MG TAB DR PO SCH (08:13)
[2020-05-29] MEDS: KETOROLAC 30MG VIAL (30MG/ML) IV SCH ×2 (10:00→16:00)
[2020-05-29 12:00] VITALS: BP 126/72
[2020-05-29] MEDS ORDERED: ACETAMINOPHEN 500 MG TABLET ONE (14:11)
[2020-05-29] MEDS ORDERED: ACETAMINOPHEN 500 MG TABLET PO PRN (14:15)
== END 2020-05-29 18:30 | disposition home health service (06) | DRG 330 ==
LOC: DAH 06:49 → DAHIP 06:50 → 3CH 13:47
PROVIDERS: ADMIT Surgery; ATTEND Surgery
PROC: 0WPF0JZ Removal of Synthetic Substitute from Abdominal Wall, Open Approach (ICD-10-PCS; 2020-05-24)
PROC: 8E0W4CZ Robotic Assisted Procedure of Trunk Region, Percutaneous Endoscopic Approach (ICD-10-PCS; 2020-05-24)
PROC: 0D1A0ZA Bypass Jejunum to Jejunum, Open Approach (ICD-10-PCS; principal; 2020-05-24 08:38)
PROC: 0FT44ZZ Resection of Gallbladder, Percutaneous Endoscopic Approach (ICD-10-PCS; 2020-05-24 08:38)
PROC: 0WQF0ZZ Repair Abdominal Wall, Open Approach (ICD-10-PCS; 2020-05-24 08:38)
DX: K43.2 Incisional hernia without obstruction or gangrene (principal); R71.0 Precipitous drop in hematocrit; K80.12 Calculus of gallbladder with acute and chronic cholecystitis without obstruction; K66.0 Peritoneal adhesions (postprocedural) (postinfection); K81.9 Cholecystitis, unspecified; Z20.822 Contact with and (suspected) exposure to COVID-19; I95.9 Hypotension, unspecified
CPT/HCPCS: 36415; 36430; 71045; 74018; 80048; 82948; 85014; 85018; 85025; 85027; 85610; 85730; 86850; 86900; 86901; 86923; 88304; 88307; 93005; 97039; C9803; G0378; J0330; J1100; J1885; J2001; J2175; J2250; J2370; J2405; J2704; J2710; J3010; J3490; J7030; J7050; J7120; P9016; U0003

== ENCOUNTER 2020-05-31 17:56 | Inpatient (IN) | payer MEDICARE ==
[~2020-05-31] VITALS: Ht 160 cm; Wt 68.8 kg
[~2020-05-31 17:56] MED LIST changes: -CLINDAMYCIN IVPB 900MG/50ML 50 ML IV SCH
[2020-05-31 18:59] LABS: BASOPHILS % (AUTO) 0.5 % (0.0-5.0); EOSINOPHILS % (AUTO) 3.3 % (0.0-8.0); LYMPHOCYTES % (AUTO) 18.3 % (21.0-51.0); MEAN CORPUSCULAR HEMOGLOBIN 29.8 pg (27.0-33.0); MEAN CORPUSCULAR HGB CONC 34.3 g/dL (32.0-36.0); MONOCYTES % (AUTO) 10.5 % (3.0-13.0); NEUTROPHILS % (AUTO) 66.4 % (40.0-77.0); PLATELET COUNT (AUTO) 502 K/uL (130-400); RED BLOOD CELL COUNT(AUTO) 3.22 MIL/uL (4.00-5.50); RED CELL DISTRIBUTION WIDTH 14.1 % (11.0-15.5); WHITE BLOOD COUNT (AUTO) 10.6 K/uL (4.8-10.8)
[2020-05-31 19:14] LABS: ALBUMIN 2.6 g/dL (3.5-5.0); BILIRUBIN,TOTAL 0.3 mg/dL (0.2-1.0); CREATININE 0.9 mg/dL (0.5-1.5); TOTAL PROTEIN, SERUM 6.7 g/dL (6.0-8.3)
[2020-05-31 19:19] LABS: POTASSIUM 2.5 mmol/L (3.5-5.1)
[2020-05-31 19:21] LABS: B-TYPE NATRIURETIC PEPTIDE 68 pg/mL (0-100)
[2020-05-31 19:25] LABS: INR 1.11 (0.85-1.15)
[2020-05-31 19:26] LABS: PARTIAL THROMBOPLASTIN TIME 30.9 SEC (26.3-35.5)
[2020-05-31] MEDS ORDERED: GUAIFENESIN-DM 200/20 MG 10 ML PO PRN (19:30)
[2020-05-31] MEDS ORDERED: NITROGLYCERIN 0.4 MG SL TAB SL PRN (19:30)
[2020-05-31] MEDS ORDERED: LACTATED RINGERS 1000ML 1,000 ML IV SCH (19:30)
[2020-05-31] MEDS ORDERED: DiphenhydrAMINE HCL 50 MG/ML VIAL IV PRN (19:30)
[2020-05-31] MEDS ORDERED: SIMVASTATIN PO SCH (19:30)
[2020-05-31] MEDS ORDERED: ONDANSETRON 4MG INJ IV PRN (19:30)
[2020-05-31] MEDS ORDERED: EZETIMIBE PO SCH (19:30)
[2020-05-31] MEDS ORDERED: DIPHENHYDRAMINE HCL 25 MG CAPSULE PO PRN (19:30)
[2020-05-31] MEDS ORDERED: MAG/ALUM/SIMETH 30 ML UDCUP PO PRN (19:30)
[2020-05-31] MEDS ORDERED: ACETAMINOPHEN 325 MG TAB PO PRN ×2 (19:30)
[2020-05-31] MEDS ORDERED: POTASSIUM CHLORIDE 20MEQ/100ML 100 ML IV PRN ×2 (19:30)
[2020-05-31] MEDS ORDERED: POTASSIUM CHLORIDE 10% ELIXIR 20 MEQ/15 ML UDCUP PO PRN (19:30)
[2020-05-31] MEDS ORDERED: [UNRECOGNIZED DRUG - OTHER] PO SCH (19:30)
[2020-05-31] MEDS ORDERED: LACTULOSE 20 GM/30 ML UDCUP PO PRN (19:30)
[2020-05-31] MEDS ORDERED: DILTIAZEM 180MG SR CAP PO SCH (19:30)
[2020-05-31] MEDS ORDERED: MAGNESIUM 2GM PREMIX 50ML 50 ML IV ONE (19:43)
[2020-05-31] MEDS ORDERED: POTASSIUM CHLORIDE 20MEQ/100ML 100 ML IV ONE (19:43)
[2020-05-31] MEDS ORDERED: KCL 20 MEQ ERTAB PO ONE (19:43)
[2020-05-31] MEDS ORDERED: 0.9%NACL 10ML VIAL IVP PRN (19:45)
[2020-05-31] MEDS ORDERED: DILTIAZEM 60MG TAB ONE (20:10)
[2020-05-31] MEDS ORDERED: MESALAMINE 800 MG PO SCH (21:00)
[2020-05-31] MEDS ORDERED: CARVEDILOL 6.25 MG TABLET PO ONE (21:06)
[2020-05-31] MEDS ORDERED: ATORVASTATIN 40 MG TABLET ONE (21:06)
[2020-05-31] MEDS ORDERED: FAMOTIDINE 20MG TAB ONE (21:06)
[2020-06-01] VITALS (25 sets, daily range): BP systolic 114–165; BP diastolic 53–85
[2020-06-01] MEDS ORDERED: POTASSIUM CHLORIDE 20MEQ/100ML 100 ML IV ONE (00:24)
[2020-06-01 03:26] LABS: BASOPHILS % (AUTO) 0.5 % (0.0-5.0); EOSINOPHILS % (AUTO) 4.9 % (0.0-8.0); LYMPHOCYTES % (AUTO) 19.9 % (21.0-51.0); MEAN CORPUSCULAR HEMOGLOBIN 29.8 pg (27.0-33.0); MEAN CORPUSCULAR HGB CONC 33.7 g/dL (32.0-36.0); MEAN CORPUSCULAR VOLUME 88.5 fL (79-99); MONOCYTES % (AUTO) 11.9 % (3.0-13.0); PLATELET COUNT (AUTO) 478 K/uL (130-400); RED BLOOD CELL COUNT(AUTO) 3.05 MIL/uL (4.00-5.50); RED CELL DISTRIBUTION WIDTH 14.6 % (11.0-15.5); WHITE BLOOD COUNT (AUTO) 10.1 K/uL (4.8-10.8)
[2020-06-01 03:41] LABS: ALBUMIN 2.5 g/dL (3.5-5.0); BILIRUBIN,TOTAL 0.3 mg/dL (0.2-1.0); CREATININE 0.8 mg/dL (0.5-1.5); MAGNESIUM 1.7 mg/dL (1.80-2.40); POTASSIUM 3.5 mmol/L (3.5-5.1); TOTAL PROTEIN, SERUM 6.3 g/dL (6.0-8.3)
[2020-06-01] MEDS: MAGNESIUM 2GM PREMIX 50ML 50 ML IV PRN (04:46)
[2020-06-01 05:14] LABS: INR 1.05 (0.85-1.15); PROTHROMBIN TIME 11.4 SEC (9.6-11.6)
[2020-06-01 05:15] LABS: PARTIAL THROMBOPLASTIN TIME 28.3 SEC (26.3-35.5)
[2020-06-01] MEDS: PROPAFENONE HCL 150 MG TABLET PO SCH ×3 (05:51→20:20)
[2020-06-01] MEDS: FAMOTIDINE 20MG VIAL IV SCH ×2 (05:51→20:22)
[2020-06-01] MEDS: DILTIAZEM 180MG SR CAP PO SCH ×2 (08:01→20:22)
[2020-06-01] MEDS: PAROXETINE HCL 20 MG TABLET PO SCH (08:01)
[2020-06-01] MEDS ORDERED: DILTIAZEM 180MG SR CAP PO SCH (09:00)
[2020-06-01] MEDS ORDERED: PAROXETINE HCL 30 MG PO SCH (09:00)
[2020-06-01] MEDS ORDERED: IOHEXOL 350 MG/ML 100ML INFUS..BTL IV ONE (14:00)
[2020-06-01] MEDS ORDERED: NITROGLYCERIN 2 MG VIAL IV ONE (14:00)
[2020-06-01] MEDS ORDERED: IOHEXOL-350 50ML VIAL IV ONE (14:00)
[2020-06-01] MEDS ORDERED: SODIUM BICARB 50MEQ 50ML VIAL 50 ML ONE (14:00)
[2020-06-01] MEDS ORDERED: HEPARIN 10,000 UNIT/10ML (1,000 UNIT/ML) VIAL ONE (14:00)
[2020-06-01] MEDS ORDERED: FENTANYL CITRATE PF 50 MCG/1 ML 2ML VIAL ONE (14:00)
[2020-06-01] MEDS ORDERED: NICARDIPINE 25MG INJ IV ONE (14:00)
[2020-06-01] MEDS ORDERED: MIDAZOLAM HCL 1 MG/ML 2ML VIAL ONE (14:00)
[2020-06-01] MEDS ORDERED: LIDOCAINE HCL 400MG/20ML VIAL ONE (14:01)
[2020-06-01] MEDS ORDERED: KCL 20 MEQ ERTAB PO SCH (15:45)
[2020-06-01] MEDS ORDERED: 0.9%NACL 1000ML 1,000 ML IV SCH (15:45)
[2020-06-02] VITALS (12 sets, daily range): BP systolic 128–163; BP diastolic 57–90
[2020-06-02 05:56] LABS: BASOPHILS % (AUTO) 0.5 % (0.0-5.0); EOSINOPHILS % (AUTO) 5.4 % (0.0-8.0); HEMATOCRIT 29.2 % (36-48); LYMPHOCYTES % (AUTO) 15.8 % (21.0-51.0); MEAN CORPUSCULAR HEMOGLOBIN 28.7 pg (27.0-33.0); MEAN CORPUSCULAR HGB CONC 32.2 g/dL (32.0-36.0); MEAN CORPUSCULAR VOLUME 89.3 fL (79-99); MONOCYTES % (AUTO) 8.1 % (3.0-13.0); NEUTROPHILS % (AUTO) 69.4 % (40.0-77.0); PLATELET COUNT (AUTO) 580 K/uL (130-400); RED BLOOD CELL COUNT(AUTO) 3.27 MIL/uL (4.00-5.50); RED CELL DISTRIBUTION WIDTH 14.6 % (11.0-15.5); WHITE BLOOD COUNT (AUTO) 8.5 K/uL (4.8-10.8)
[2020-06-02 06:17] LABS: ALBUMIN 2.4 g/dL (3.5-5.0); BILIRUBIN,TOTAL 0.3 mg/dL (0.2-1.0); CREATININE 0.8 mg/dL (0.5-1.5); MAGNESIUM 1.6 mg/dL (1.80-2.40); POTASSIUM 3.5 mmol/L (3.5-5.1); TOTAL PROTEIN, SERUM 6.2 g/dL (6.0-8.3)
[2020-06-02] MEDS: MAGNESIUM 2GM PREMIX 50ML 50 ML IV PRN ×2 (06:37→09:25)
[2020-06-02] MEDS: KCL 20 MEQ ERTAB PO PRN ×2 (08:18→08:19)
[2020-06-02] MEDS: DILTIAZEM 180MG SR CAP PO SCH (08:18)
[2020-06-02] MEDS: PAROXETINE HCL 20 MG TABLET PO SCH (08:19)
[2020-06-02] MEDS: PROPAFENONE HCL 150 MG TABLET PO SCH (08:24)
[2020-06-02] MEDS ORDERED: SIMVASTATIN 20 MG TABLET PO SCH (09:00)
[2020-06-02] MEDS ORDERED: EZETIMIBE 10 MG TAB PO SCH (09:00)
[2020-06-02 13:25] LABS: MAGNESIUM 2.9 mg/dL (1.80-2.40); POTASSIUM 4.2 mmol/L (3.5-5.1)
== END 2020-06-02 16:29 | disposition home or self-care (01) | DRG 287 ==
LOC: EDH 17:56 → EDHIP 17:57 → 2CH 06-01 04:00
PROVIDERS: ADMIT Family Medicine; ATTEND Family Medicine
PROC: 4A023N7 Measurement of Cardiac Sampling and Pressure, Left Heart, Percutaneous Approach (ICD-10-PCS; principal; 2020-06-01)
PROC: B2111ZZ Fluoroscopy of Multiple Coronary Arteries using Low Osmolar Contrast (ICD-10-PCS; 2020-06-01)
PROC: B2151ZZ Fluoroscopy of Left Heart using Low Osmolar Contrast (ICD-10-PCS; 2020-06-01)
DX: I47.9 Paroxysmal tachycardia, unspecified (principal); D68.69 Other thrombophilia; E83.42 Hypomagnesemia; E87.6 Hypokalemia; I48.0 Paroxysmal atrial fibrillation; Z79.01 Long term (current) use of anticoagulants; Z90.49 Acquired absence of other specified parts of digestive tract; E11.9 Type 2 diabetes mellitus without complications; Z82.49 Family history of ischemic heart disease and other diseases of the circulatory system; Z83.3 Family history of diabetes mellitus; D64.9 Anemia, unspecified; I11.9 Hypertensive heart disease without heart failure; Z88.8 Allergy status to other drugs, medicaments and biological substances; Z88.2 Allergy status to sulfonamides
CPT/HCPCS: 36415; 71045; 80053; 83735; 83880; 84132; 85025; 85610; 85730; 87177; 87507; 93005; 93458; 99156; 99157; C1769; G0378; J1644; J2250; J3010; J3475; J3480; J3490; J7030; J7120; Q9967

== ENCOUNTER 2020-06-10 11:56 | Emergency (ER) | payer MEDICARE ==
[2020-06-10 12:14] LABS: BASOPHILS % (AUTO) 1.2 % (0.0-5.0); EOSINOPHILS % (AUTO) 1.6 % (0.0-8.0); LYMPHOCYTES % (AUTO) 11.7 % (21.0-51.0); MEAN CORPUSCULAR HEMOGLOBIN 29.5 pg (27.0-33.0); MEAN CORPUSCULAR HGB CONC 32.8 g/dL (32.0-36.0); MEAN CORPUSCULAR VOLUME 89.9 fL (79-99); MONOCYTES % (AUTO) 5.8 % (3.0-13.0); NEUTROPHILS % (AUTO) 79.3 % (40.0-77.0); PLATELET COUNT (AUTO) 662 K/uL (130-400); RED BLOOD CELL COUNT(AUTO) 3.56 MIL/uL (4.00-5.50); RED CELL DISTRIBUTION WIDTH 14.4 % (11.0-15.5)
[2020-06-10 12:25] LABS: CREATININE 1.1 mg/dL (0.5-1.5); POTASSIUM 3.8 mmol/L (3.5-5.1)
[2020-06-10 12:29] LABS: ALBUMIN 3.3 g/dL (3.5-5.0); BILIRUBIN,TOTAL 0.2 mg/dL (0.2-1.0); MAGNESIUM 2.2 mg/dL (1.80-2.40); TOTAL PROTEIN, SERUM 7.9 g/dL (6.0-8.3)
[2020-06-10 12:38] LABS: B-TYPE NATRIURETIC PEPTIDE 47 pg/mL (0-100)
[2020-06-10 15:23] LABS: APPEARANCE,URINE Cloudy (CLEAR); BILIRUBIN,URINE Negative (NEGATIVE); COLOR,URINE Dark Yellow (YELLOW); GLUCOSE, URINE (UA) Negative (NEGATIVE); KETONES,URINE Trace mg/dL (NEGATIVE); LEUKOCYTE ESTERASE ,URINE Trace (NEGATIVE); NITRATE,URINE Negative (NEGATIVE); OCCULT BLOOD,URINE Negative (NEGATIVE); PROTEIN,URINE POS 1+ mg/dL (NEGATIVE)
[2020-06-10 15:50] LABS: BACTERIA,URINE Moderate /HPF (None Seen); MUCUS,URINE Many LPF (None Seen); SQUAMOUS EPITHELIAL CELL,UR Moderate /HPF (0-2); URIC ACID CRYSTALS,URINE Moderate /LPF (None Seen)
== END 2020-06-10 15:53 | disposition home or self-care (01) ==
LOC: EDH 11:56
DX: E87.8 Other disorders of electrolyte and fluid balance, not elsewhere classified (principal); E11.9 Type 2 diabetes mellitus without complications; I48.91 Unspecified atrial fibrillation; Z90.49 Acquired absence of other specified parts of digestive tract; Z90.710 Acquired absence of both cervix and uterus; Z88.1 Allergy status to other antibiotic agents; Z88.2 Allergy status to sulfonamides; Z88.0 Allergy status to penicillin; Z88.6 Allergy status to analgesic agent; Z88.8 Allergy status to other drugs, medicaments and biological substances
CPT/HCPCS: 36415; 74176; 80053; 81001; 82550; 83735; 83880; 84443; 84484; 85025; 87088; 93005

== ENCOUNTER 2020-06-12 21:55 | Observation (INO) | payer MEDICARE ==
[~2020-06-12] VITALS: Ht 160 cm; Wt 66.7 kg
[2020-06-12] MEDS ORDERED: ONDANSETRON 4MG INJ ONE ×2 (22:24→23:48)
[2020-06-12 22:33] LABS: APPEARANCE,URINE CLEAR (CLEAR); BILIRUBIN,URINE NEGATIVE (NEGATIVE); COLOR,URINE YELLOW (YELLOW); GLUCOSE, URINE (UA) NEGATIVE (NEGATIVE); KETONES,URINE 15 mg/dL (NEGATIVE); LEUKOCYTE ESTERASE ,URINE SMALL (NEGATIVE); NITRATE,URINE NEGATIVE (NEGATIVE); OCCULT BLOOD,URINE NEGATIVE (NEGATIVE); PROTEIN,URINE 100 mg/dL (NEGATIVE); UROBILINOGEN,URINE 0.2 mg/dL (0.2-1.0)
[2020-06-12 22:39] LABS: BASOPHILS % (AUTO) 0.5 % (0.0-5.0); EOSINOPHILS % (AUTO) 0.9 % (0.0-8.0); LYMPHOCYTES % (AUTO) 9.5 % (21.0-51.0); MEAN CORPUSCULAR HEMOGLOBIN 29.9 pg (27.0-33.0); MEAN CORPUSCULAR HGB CONC 33.1 g/dL (32.0-36.0); MEAN CORPUSCULAR VOLUME 90.2 fL (79-99); MONOCYTES % (AUTO) 4.5 % (3.0-13.0); NEUTROPHILS % (AUTO) 84.1 % (40.0-77.0); RED BLOOD CELL COUNT(AUTO) 3.88 MIL/uL (4.00-5.50); RED CELL DISTRIBUTION WIDTH 14.5 % (11.0-15.5); WHITE BLOOD COUNT (AUTO) 19.7 K/uL (4.8-10.8)
[2020-06-12 22:41] LABS: RBC,URINE None Seen /HPF (0-1)
[2020-06-12 22:42] LABS: BACTERIA,URINE Rare /HPF (None Seen); SQUAMOUS EPITHELIAL CELL,UR Moderate /HPF (0-2)
[2020-06-12 22:43] LABS: PLATELET COUNT (AUTO) 744 K/uL (130-400)
[2020-06-12 22:59] LABS: CREATININE 1.2 mg/dL (0.5-1.5)
[2020-06-12 23:00] LABS: INR 1.16 (0.85-1.15); PROTHROMBIN TIME 12.5 SEC (9.6-11.6)
[2020-06-12 23:01] LABS: PARTIAL THROMBOPLASTIN TIME 31.8 SEC (26.3-35.5)
[2020-06-12 23:05] LABS: ALBUMIN 3.8 g/dL (3.5-5.0); BILIRUBIN,TOTAL 0.2 mg/dL (0.2-1.0); MAGNESIUM 1.9 mg/dL (1.80-2.40); PHOSPHORUS 3.7 mg/dL (2.5-4.9); TOTAL PROTEIN, SERUM 8.7 g/dL (6.0-8.3)
[2020-06-12 23:25] LABS: PLATELET MORPHOLOGY COMMENT INCREASED
[2020-06-13] MEDS ORDERED: MORPHINE 4 MG SYG ONE (00:20)
[2020-06-13] MEDS: 0.9%NACL 1000ML 1,000 ML IV SCH ×2 (02:45→12:45)
[2020-06-13] MEDS ORDERED: MORPHINE 4 MG SYG IV PRN (02:45)
[2020-06-13] MEDS ORDERED: ONDANSETRON 4MG INJ IV PRN (02:45)
[2020-06-13] MEDS ORDERED: MORPHINE 2 MG SYG IV PRN (02:45)
[2020-06-13 05:51] LABS: BASOPHILS % (AUTO) 0.5 % (0.0-5.0); EOSINOPHILS % (AUTO) 0.4 % (0.0-8.0); HEMATOCRIT 30.1 % (36-48); LYMPHOCYTES % (AUTO) 10.3 % (21.0-51.0); MEAN CORPUSCULAR HGB CONC 34.6 g/dL (32.0-36.0); MEAN CORPUSCULAR VOLUME 89.6 fL (79-99); MONOCYTES % (AUTO) 5.3 % (3.0-13.0); NEUTROPHILS % (AUTO) 83.1 % (40.0-77.0); PLATELET COUNT (AUTO) 692 K/uL (130-400); RED BLOOD CELL COUNT(AUTO) 3.36 MIL/uL (4.00-5.50); RED CELL DISTRIBUTION WIDTH 14.4 % (11.0-15.5); WHITE BLOOD COUNT (AUTO) 13.5 K/uL (4.8-10.8)
[2020-06-13 06:30] LABS: ALBUMIN 2.9 g/dL (3.5-5.0); BILIRUBIN,TOTAL 0.2 mg/dL (0.2-1.0); CREATININE 0.9 mg/dL (0.5-1.5); POTASSIUM 3.9 mmol/L (3.5-5.1); TOTAL PROTEIN, SERUM 6.8 g/dL (6.0-8.3)
[2020-06-13] MEDS ORDERED: POTASSIUM CHLORIDE 10MEQ/100ML 100 ML IV PRN (08:30)
[2020-06-13] MEDS ORDERED: KCL 20 MEQ ERTAB PO ONE (08:37)
[2020-06-13] MEDS ORDERED: MAGNESIUM 2GM PREMIX 50ML 50 ML IV ONE (08:37)
[2020-06-13] MEDS ORDERED: AMLODIPINE 5 MG TAB ONE (09:41)
[2020-06-13 13:41] LABS: CREATININE 0.8 mg/dL (0.5-1.5); POTASSIUM 4.1 mmol/L (3.5-5.1)
[2020-06-13] MEDS ORDERED: SIMVASTATIN PO SCH (14:15)
[2020-06-13] MEDS ORDERED: [UNRECOGNIZED DRUG - OTHER] PO SCH (14:15)
[2020-06-13] MEDS ORDERED: EZETIMIBE PO SCH (14:15)
[2020-06-13 18:09] VITALS: BP 143/77
[2020-06-13] MEDS ORDERED: EZETIMIBE 10 MG TAB ONE (19:16)
[2020-06-13] MEDS ORDERED: SIMVASTATIN 20 MG TABLET ONE (19:16)
[2020-06-13] MEDS ORDERED: PROPAFENONE HCL 150 MG TABLET ONE (19:26)
[2020-06-13 19:51] VITALS: BP 137/73
[2020-06-13] MEDS: SIMVASTATIN 20 MG TABLET PO SCH (19:55)
[2020-06-13] MEDS: PROPAFENONE HCL 150 MG TABLET PO SCH (19:55)
[2020-06-13] MEDS: EZETIMIBE 10 MG TAB PO SCH (19:55)
[2020-06-14 00:10] VITALS: BP 145/88
[2020-06-14 04:15] VITALS: BP 143/73
[2020-06-14 05:51] LABS: BASOPHILS % (AUTO) 0.8 % (0.0-5.0); EOSINOPHILS % (AUTO) 2.6 % (0.0-8.0); HEMATOCRIT 31.1 % (36-48); LYMPHOCYTES % (AUTO) 20.9 % (21.0-51.0); MEAN CORPUSCULAR HEMOGLOBIN 29.3 pg (27.0-33.0); MEAN CORPUSCULAR HGB CONC 32.5 g/dL (32.0-36.0); MEAN CORPUSCULAR VOLUME 90.1 fL (79-99); MONOCYTES % (AUTO) 6.6 % (3.0-13.0); NEUTROPHILS % (AUTO) 68.8 % (40.0-77.0); PLATELET COUNT (AUTO) 610 K/uL (130-400); RED BLOOD CELL COUNT(AUTO) 3.45 MIL/uL (4.00-5.50); RED CELL DISTRIBUTION WIDTH 14.4 % (11.0-15.5); WHITE BLOOD COUNT (AUTO) 9.3 K/uL (4.8-10.8)
[2020-06-14 06:00] LABS: CREATININE 0.9 mg/dL (0.5-1.5); MAGNESIUM 1.5 mg/dL (1.80-2.40); POTASSIUM 4.4 mmol/L (3.5-5.1)
[2020-06-14] MEDS: 0.9%NACL 1000ML 1,000 ML IV SCH (06:06)
[2020-06-14] MEDS: MAGNESIUM 2GM PREMIX 50ML 50 ML IV PRN (06:06)
[2020-06-14 07:32] VITALS: BP 140/76
[2020-06-14] MEDS ORDERED: PANTOPRAZOLE 40 MG TAB DR PO SCH (09:00)
[2020-06-14] MEDS: ASCORBIC ACID 500 MG TAB PO SCH ×2 (09:00→20:55)
[2020-06-14] MEDS: PAROXETINE HCL 20 MG TABLET PO SCH (10:13)
[2020-06-14] MEDS: PROPAFENONE HCL 150 MG TABLET PO SCH ×2 (10:14→20:56)
[2020-06-14] MEDS: DILTIAZEM 180MG SR CAP PO SCH ×2 (10:48→21:00)
[2020-06-14 11:00] VITALS: BP 131/66
[2020-06-14] MEDS: FERROUS SULFATE 325 MG TABLET.DR PO SCH (11:00)
[2020-06-14] MEDS: LACT PO SCH ×2 (11:00→20:55)
[2020-06-14] MEDS: MESALAMINE 800 MG PO SCH ×2 (11:01→21:00)
[2020-06-14] MEDS ORDERED: LOPERAMIDE HCL 2 MG CAP PO PRN (13:15)
[2020-06-14 16:10] VITALS: BP 119/64
[2020-06-14 20:42] VITALS: BP 133/68
[2020-06-14] MEDS: APIXABAN 5 MG TABLET PO SCH ×2 (20:54→21:00)
[2020-06-14] MEDS: SIMVASTATIN 20 MG TABLET PO SCH (20:55)
[2020-06-14] MEDS: EZETIMIBE 10 MG TAB PO SCH (20:55)
[2020-06-14] MEDS ORDERED: MAGN400T40 PO (20:59)
[2020-06-14] MEDS ORDERED: CRANBERRY FRUIT 250 MG PO SCH (21:00)
[2020-06-14] MEDS ORDERED: ACETAMINOPHEN 325 MG TAB PO PRN ×2 (21:45)
[2020-06-15 00:35] VITALS: BP 142/48
[2020-06-15 05:39] LABS: BASOPHILS % (AUTO) 0.6 % (0.0-5.0); EOSINOPHILS % (AUTO) 3.2 % (0.0-8.0); HEMATOCRIT 27.7 % (36-48); LYMPHOCYTES % (AUTO) 22.1 % (21.0-51.0); MEAN CORPUSCULAR HEMOGLOBIN 29.5 pg (27.0-33.0); MEAN CORPUSCULAR HGB CONC 32.5 g/dL (32.0-36.0); MEAN CORPUSCULAR VOLUME 90.8 fL (79-99); MONOCYTES % (AUTO) 7.5 % (3.0-13.0); NEUTROPHILS % (AUTO) 66.5 % (40.0-77.0); PLATELET COUNT (AUTO) 495 K/uL (130-400); RED BLOOD CELL COUNT(AUTO) 3.05 MIL/uL (4.00-5.50); RED CELL DISTRIBUTION WIDTH 14.3 % (11.0-15.5); WHITE BLOOD COUNT (AUTO) 8.2 K/uL (4.8-10.8)
[2020-06-15 05:43] VITALS: BP 101/60
[2020-06-15 05:47] LABS: CREATININE 0.8 mg/dL (0.5-1.5); MAGNESIUM 1.7 mg/dL (1.80-2.40); POTASSIUM 3.9 mmol/L (3.5-5.1)
[2020-06-15] MEDS: MAGNESIUM 2GM PREMIX 50ML 50 ML IV PRN (06:22)
[2020-06-15] MEDS ORDERED: PSYL660P17 PO (08:33)
[2020-06-15] MEDS ORDERED: PANTOPRAZOLE 40 MG TAB DR PO SCH (09:00)
[2020-06-15] MEDS: LACT PO SCH (10:06)
[2020-06-15] MEDS: PROPAFENONE HCL 150 MG TABLET PO SCH (10:07)
[2020-06-15] MEDS: PAROXETINE HCL 20 MG TABLET PO SCH (10:07)
[2020-06-15] MEDS: APIXABAN 5 MG TABLET PO SCH (10:07)
[2020-06-15] MEDS: MESALAMINE 800 MG PO SCH (10:08)
[2020-06-15] MEDS: FERROUS SULFATE 325 MG TABLET.DR PO SCH (10:08)
[2020-06-15] MEDS: ASCORBIC ACID 500 MG TAB PO SCH (10:08)
[2020-06-15] MEDS: DILTIAZEM 180MG SR CAP PO SCH (10:15)
== END 2020-06-15 11:45 | disposition home or self-care (01) ==
LOC: EDH 21:55 → INTOOBSV 06-13 02:42 → EDHIP 06-13 02:42 → 3DH 06-13 16:05
PROVIDERS: ADMIT Internal Medicine; ATTEND Internal Medicine
DX: K56.609 Unspecified intestinal obstruction, unspecified as to partial versus complete obstruction (principal); E83.42 Hypomagnesemia; D72.829 Elevated white blood cell count, unspecified; E87.6 Hypokalemia; E11.9 Type 2 diabetes mellitus without complications; I10 Essential (primary) hypertension; I48.20 Chronic atrial fibrillation, unspecified; D68.59 Other primary thrombophilia; E86.0 Dehydration; M48.061 Spinal stenosis, lumbar region without neurogenic claudication; E66.9 Obesity, unspecified; Z90.49 Acquired absence of other specified parts of digestive tract; Z79.84 Long term (current) use of oral hypoglycemic drugs; Z79.01 Long term (current) use of anticoagulants; Z79.899 Other long term (current) drug therapy; Z88.0 Allergy status to penicillin; Z88.2 Allergy status to sulfonamides; Z88.1 Allergy status to other antibiotic agents; Z88.8 Allergy status to other drugs, medicaments and biological substances; Z68.26 Body mass index [BMI] 26.0-26.9, adult
CPT/HCPCS: 36415 ×4; 43752; 74176; 80048 ×2; 80053 ×2; 81001; 82948 ×6; 83690; 83735 ×5; 84100; 84145; 84484; 85025 ×4; 85610; 85730; 87177; 87324; 93005; 96365; 96366 ×2; 99285; G0378 ×57; J2270; J2405 ×2; J3475 ×3

== ENCOUNTER → 2021-06-14 | Outpatient (CLI) | payer MEDICARE ==
[~2021-06-14] MED LIST changes: +MAGN400T40 PO; +PSYL660P17 PO
== END | disposition home or self-care (01) ==
LOC: RAH 07:34
PROVIDERS: ATTEND Family Medicine
DX: M48.061 Spinal stenosis, lumbar region without neurogenic claudication (principal); M47.816 Spondylosis without myelopathy or radiculopathy, lumbar region; M41.9 Scoliosis, unspecified; M47.814 Spondylosis without myelopathy or radiculopathy, thoracic region; M48.04 Spinal stenosis, thoracic region; M51.24 Other intervertebral disc displacement, thoracic region; G96.191 Perineural cyst; G95.0 Syringomyelia and syringobulbia
CPT/HCPCS: 72146; 72148

== ENCOUNTER 2022-02-13 16:07 | Emergency (ER) | payer MEDICARE ==
[~2022-02-13] VITALS: Ht 160 cm; Wt 71.7 kg
[~2022-02-13 16:07] MED LIST changes: +EZET-80 PO; -EZET1TAB17 PO
[2022-02-13 16:08] VITALS: BP 101/59
[2022-02-13 16:22] LABS: APPEARANCE,URINE CLOUDY (CLEAR); BILIRUBIN,URINE NEGATIVE (NEGATIVE); COLOR,URINE DARK-YELLOW (YELLOW); GLUCOSE, URINE (UA) NEGATIVE (NEGATIVE); KETONES,URINE NEGATIVE (NEGATIVE); LEUKOCYTE ESTERASE ,URINE 500 Leu/uL (NEGATIVE); NITRATE,URINE NEGATIVE (NEGATIVE); PROTEIN,URINE 20 mg/dL (NEGATIVE); UROBILINOGEN,URINE 0.2 mg/dL (0.2-1.0)
[2022-02-13 16:31] LABS: BACTERIA,URINE MOD /HPF (None Seen); MUCUS,URINE RARE LPF (None Seen); SQUAMOUS EPITHELIAL CELL,UR RARE /HPF (0-2); WBC,URINE >100 /HPF (0-1)
== END 2022-02-13 19:29 | disposition left against medical advice (07) ==
LOC: EDH 16:07
DX: R35.0 Frequency of micturition (principal); Z53.21 Procedure and treatment not carried out due to patient leaving prior to being seen by health care provider
CPT/HCPCS: 81001; 87077; 87088; 87186

== ENCOUNTER → 2022-02-21 | Outpatient (CLI) | payer MEDICARE | END | disposition home or self-care (01) | LOC: SHCH 10:47 | PROVIDERS: ATTEND Internal Medicine Cardiovascular Disease | DX: I48.0 Paroxysmal atrial fibrillation (principal); E11.9 Type 2 diabetes mellitus without complications; I10 Essential (primary) hypertension; I31.39 Other pericardial effusion (noninflammatory); I35.1 Nonrheumatic aortic (valve) insufficiency; I47.20 Ventricular tachycardia, unspecified | CPT/HCPCS: 93306 ==

== ENCOUNTER 2023-02-05 12:39 | Emergency (ER) | payer MEDICARE ==
[~2023-02-05] VITALS: Ht 160 cm; Wt 71.7 kg
[2023-02-05 12:59] VITALS: BP 137/79; PULSE 83; RESP 16; O2SAT 96
[2023-02-05 13:24] LABS: APPEARANCE,URINE SL CLOUDY (CLEAR); BILIRUBIN,URINE SMALL mg/dL (NEGATIVE); COLOR,URINE ORANGE (YELLOW); GLUCOSE, URINE (UA) 100 mg/dL (NEGATIVE); KETONES,URINE 5 mg/dL (NEGATIVE); LEUKOCYTE ESTERASE ,URINE SMALL Leu/uL (NEGATIVE); NITRATE,URINE POSITIVE (NEGATIVE); OCCULT BLOOD,URINE TRACE-INTACT (NEGATIVE); PROTEIN,URINE 100 mg/dL (NEGATIVE)
[2023-02-05 13:29] LABS: ADD UA MICROSCOPIC YES
[2023-02-05 13:31] LABS: BACTERIA,URINE Many /HPF (None Seen); RBC,URINE 0-1 /HPF (0-1); SQUAMOUS EPITHELIAL CELL,UR Rare /HPF (0-2); WBC,URINE 51-100 /HPF (0-1)
[2023-02-05] MEDS ORDERED: LEVOFLOXACIN 500 MG/D5W 100 ML 100 ML IV SCH (15:00)
[2023-02-05] MEDS ORDERED: LEVOFLOXACIN 500 MG TABLET PO SCH (15:00)
[2023-02-05 15:25] LABS: BASOPHILS # (AUTO) 0.08 K/uL (0.00-0.20); BASOPHILS % (AUTO) 0.7 % (0.0-5.0); EOSINOPHILS # (AUTO) 0.15 K/uL (0.00-0.70); EOSINOPHILS % (AUTO) 1.3 % (0.0-8.0); IMMATURE GRANULOCYTE ABSOLUTE 0.07 K/uL (0-1); LYMPHOCYTES # (AUTO) 2.6 K/uL (1.0-4.8); LYMPHOCYTES % (AUTO) 22.7 % (21.0-51.0); MEAN CORPUSCULAR HEMOGLOBIN 30.5 pg (27.0-33.0); MEAN CORPUSCULAR HGB CONC 32.9 g/dL (32.0-36.0); MEAN CORPUSCULAR VOLUME 92.7 fL (79-99); MONOCYTES # (AUTO) 0.8 K/uL (0.1-1.0); MONOCYTES % (AUTO) 6.6 % (3.0-13.0); NEUTROPHILS # (AUTO) 7.7 K/uL (1.8-7.7); NEUTROPHILS % (AUTO) 68.1 % (40.0-77.0); PLATELET COUNT (AUTO) 398 K/uL (130-400); RED BLOOD CELL COUNT(AUTO) 4.53 MIL/uL (4.00-5.50); WHITE BLOOD COUNT (AUTO) 11.4 K/uL (4.8-10.8)
[2023-02-05 15:37] LABS: CREATININE 0.9 mg/dL (0.5-1.5); POTASSIUM 4.5 mmol/L (3.5-5.1)
[2023-02-05 15:42] LABS: ALBUMIN 3.7 g/dL (3.5-5.0); BILIRUBIN,TOTAL 0.3 mg/dL (0.2-1.0); TOTAL PROTEIN, SERUM 7.6 g/dL (6.0-8.3)
[2023-02-05] MEDS ORDERED: LEVO-70 PO (17:03)
== END 2023-02-05 17:11 | disposition home or self-care (01) ==
LOC: EDH 12:39
DX: N39.0 Urinary tract infection, site not specified (principal); R30.0 Dysuria; R35.0 Frequency of micturition; R10.2 Pelvic and perineal pain; E11.9 Type 2 diabetes mellitus without complications; E78.00 Pure hypercholesterolemia, unspecified; I10 Essential (primary) hypertension
CPT/HCPCS: 99285; 74176; 96365; 80053; 85025; 87077; 87088; 87186; 81001; 36415; J1956

== ENCOUNTER 2023-02-25 15:51 | Emergency (ER) | payer MEDICARE ==
[~2023-02-25] VITALS: Ht 160 cm; Wt 71.7 kg
[~2023-02-25 15:51] MED LIST changes: +LEVO-70 PO
[2023-02-25 15:56] VITALS: BP 164/94
[2023-02-25 16:29] LABS: BASOPHILS # (AUTO) 0.05 K/uL (0.00-0.20); BASOPHILS % (AUTO) 0.5 % (0.0-5.0); EOSINOPHILS # (AUTO) 0.19 K/uL (0.00-0.70); EOSINOPHILS % (AUTO) 1.7 % (0.0-8.0); IMMATURE GRANULOCYTE ABSOLUTE 0.04 K/uL (0-1); LYMPHOCYTES # (AUTO) 1.9 K/uL (1.0-4.8); LYMPHOCYTES % (AUTO) 17.4 % (21.0-51.0); MEAN CORPUSCULAR HEMOGLOBIN 29.6 pg (27.0-33.0); MEAN CORPUSCULAR HGB CONC 32.3 g/dL (32.0-36.0); MEAN CORPUSCULAR VOLUME 91.7 fL (79-99); MONOCYTES # (AUTO) 0.7 K/uL (0.1-1.0); MONOCYTES % (AUTO) 6.4 % (3.0-13.0); NEUTROPHILS # (AUTO) 8.2 K/uL (1.8-7.7); NEUTROPHILS % (AUTO) 73.6 % (40.0-77.0); PLATELET COUNT (AUTO) 366 K/uL (130-400); RED BLOOD CELL COUNT(AUTO) 4.36 MIL/uL (4.00-5.50); RED CELL DISTRIBUTION WIDTH 14.2 % (11.0-15.5); WHITE BLOOD COUNT (AUTO) 11.1 K/uL (4.8-10.8)
[2023-02-25] MEDS ORDERED: PREDNISONE 20 MG TABLET PO ONE (16:30)
[2023-02-25] MEDS ORDERED: IPRATROPIUM/ALBUTEROL SULFATE 3 ML SOLUTION IH ONE (16:30)
[2023-02-25 16:39] VITALS: PULSE 82; RESP 16
[2023-02-25 16:39] LABS: RAPID GROUP A STREP negative (NEGATIVE)
[2023-02-25 16:43] LABS: CREATININE 1.1 mg/dL (0.5-1.5); POTASSIUM 4.1 mmol/L (3.5-5.1)
[2023-02-25 16:44] LABS: SARS-CoV-2, RNA, NAAT NEGATIVE SARS CoV-2 (NEGATIVE)
[2023-02-25 16:48] LABS: ALBUMIN 3.4 g/dL (3.5-5.0); BILIRUBIN,TOTAL 0.2 mg/dL (0.2-1.0); TOTAL PROTEIN, SERUM 7.3 g/dL (6.0-8.3)
[2023-02-25 16:49] LABS: INFLUENZA TYPE B Negative For Type B (NEGATIVE)
[2023-02-25 16:52] LABS: B-TYPE NATRIURETIC PEPTIDE 41 pg/mL (0-100)
[2023-02-25 16:54] LABS: INFLUENZA TYPE A Positive For Type A (NEGATIVE)
[2023-02-25] MEDS ORDERED: FAMO20TA8 PO (17:04)
[2023-02-25] MEDS ORDERED: ALBU2SYR3 PO (17:04)
[2023-02-25] MEDS ORDERED: OSEL75 PO (17:04)
[2023-02-25] MEDS ORDERED: PRED50TA2 PO (17:04)
== END 2023-02-25 17:55 | disposition home or self-care (01) ==
LOC: EDH 15:51
DX: J11.1 Influenza due to unidentified influenza virus with other respiratory manifestations (principal); R06.2 Wheezing; Z20.822 Contact with and (suspected) exposure to COVID-19
CPT/HCPCS: 99285; 71045; 87635; 84484; 80053; 83880; 85025; 87880; 87804 ×2; 36415; 93005; 94640; C9803

== ENCOUNTER → 2023-04-03 | Outpatient (CLI) | payer MEDICARE ==
[~2023-04-03] MED LIST changes: +ALBU2SYR3 PO; +FAMO20TA8 PO; +OSEL75 PO; +PRED50TA2 PO
== END | disposition home or self-care (01) ==
LOC: RAH 12:35
PROVIDERS: ATTEND Family Medicine
DX: G95.0 Syringomyelia and syringobulbia (principal); M47.814 Spondylosis without myelopathy or radiculopathy, thoracic region; M51.24 Other intervertebral disc displacement, thoracic region; M51.34 Other intervertebral disc degeneration, thoracic region; M48.04 Spinal stenosis, thoracic region; M47.816 Spondylosis without myelopathy or radiculopathy, lumbar region; M51.37 Other intervertebral disc degeneration, lumbosacral region; M48.07 Spinal stenosis, lumbosacral region
CPT/HCPCS: 72146; 72148